=== PATIENT | female | born 1970 | race Asian ===

== ENCOUNTER 2023-02-28 23:08 | Emergency (ER) | payer BC, SELFPAY ==
[2023-02-28 23:09] VITALS: BP 112/82
--- NOTE | 2023-02-28 23:44 | ED.GENMED ---
History of Present Illness
General
Chief Complaint: Headache
Source: patient and records
Exam Limitations: none
Time Seen by Provider: 02/28/23 23:17
Nursing documentation reviewed up to this point in time: agreed with
Travel History
Have you had any contact with someone who has COVID-19?: No
Do you have any symptoms of coronavirus? Fever > 100 degrees, chills, cough, shortness of breath, sore throat, loss of taste or smell, muscle aches, or headache?: No
History of Present Illness
History of Present Illness:
52-year-old female history of migraines, whole family had COVID patient's been coughing developed headache an hour or so ago, no vomiting has had subjective fever and some cough chills intermittently eating and drinking okay headache is right-sided
behind her eye reportedly similar problem prior migraine but a bit more severe
Past History
Past History
ED Past Medical History: Other (Migraine headaches)
ED Past Surgical History: Other (Thyroid surgery)
Social History
Tobacco: Non-smoker
Alcohol: None
Personal:
Living: with family
Employment: Employed
Family History
Family History: Negative CAD or Sudden
Phy Exam
Physical Exam
Physical Exam:
Physical Exam
General: 52 female looks uncomfortable but nontoxic
Neck: No photophobia extraocular movements are intact no pain with flexion of the neck
Heart: s1/s2 regular rate and rhythm, no murmur. equal radial pulses.
Lungs: no acute respiratory distress. clear bilaterally
Abdomen: Nontender
Neuro: alert and oriented. no focal neurological deficits
Skin: no rash
Psychiatric: cooperative
Extremities: no edema.
Course
Orders/Labs/Results
Orders:
Orders
02/28/23 23:30
0.9% Sodium Chloride 1000 ml [Nss] 1,000 ml IV BOLUS
Dexamethasone Sod Phosphate [Decadron] 10 mg IV NOW STA
Ketorolac [Toradol] 30 mg IV NOW STA
Metoclopramide [Reglan] 10 mg IV NOW STA
02/28/23 23:40
0.9% Sodium Chloride 1000 ml [Nss] 1,000 ml IV BOLUS
02/28/23 23:49
Complete Blood Count/With Diff Urgent
Comprehensive Metabolic Panel Urgent
Abnormal Lab Results
02/28/23
23:49
RBC 4.13 L 10^6/uL
(4.20-5.40)
Hct 36.7 L %
(37.0-47.0)
MCH 32.0 H pg
(27.0-31.0)
Creatinine 0.5 L mg/dL
(0.6-1.0)
Glucose 100 H mg/dl
(70-99)
AST 39 H U/L
(14-36)
ALT 52 H U/L
(0-35)
02/28/23 23:49
02/28/23 23:49
Vital Signs
Initial and Last Documented VS:
Initial Vital Signs
Pulse Resp BP Pulse Ox
80 22 112/82 98
02/28/23 23:09 02/28/23 23:09 02/28/23 23:09 02/28/23 23:09
Last Documented Vital Signs
Pulse Resp BP Pulse Ox
80 22 112/82 98
02/28/23 23:09 02/28/23 23:09 02/28/23 23:09 02/28/23 23:09
MDM/Problems Addressed
Differential Diagnosis Includes:
Migraine dehydration, electrolyte abnormality doubt G[employer] BLASTING infection or intraocular lesion by history and physical
MDM/Problems Addressed:
Headache COVID
Chronic conditions affecting care:
Migraine
*Hogshead Head Matcher Interpretation
Rate: Hogshead Head Matcher- N/A
*Critical Care Note
Total Time (30-74mins, 75-104mins- exclusive of procedures): Not Applicable
Update Note
Update Note:
Update patient peers uncomfortable this admission migraines family states this is similar but a bit more severe than her prior migraines, does have COVID infection by report as test all family will hydrate try some antiemetics and steroids as she
does pupils are round and reactive, no photophobia no meningeal signs
1 AM, patient feeling better resting comfortably occasionally coughing no longer having headache family asking history as later, her main issue now is cough asking for some antitussives steroid should help with will also give a puffer
ED Attending Note
-
Portions of this chart may have been created with voice recognition software.� Occasional wrong word or��sound alike� substitutions may have occurred due to the inherent limitations of voice recognition software.
Discharge Plan
Departure
Patient Disposition: Home (Routine Discharge)
Date of Disposition: 03/01/23
Time of Disposition: :01
Patient with high blood pressure during this ER visit?: No
Condition: Good
Covid-19: Suspected COVID-19
Discharge Problem:
COVID-19, Headache
Instructions: Cough, Adult (DC), Headache, Adult (DC), COVID-19 (DC)
Prescriptions:
New
methylprednisolone [Medrol (Justino)] 4 mg tablets,dose pack
See Rx Instructions .ROUTE .COMPLEX Qty: 21 0RF
Rx Instructions:
orally per package directions
albuterol sulfate [ProAir HFA] 90 mcg/actuation HFA aerosol inhaler
2 puff inhalation Q4HPRN PRN (Reason: shortness of breath) Qty: 8.5 0RF
No Action
ondansetron 4 MG tablet,disintegrating
4 mg PO TIDPRN PRN (Reason: vomiting) Qty: 7 0RF
[id number] [Fioricet] 1 EACH capsule
1 ea PO TIDPRN PRN (Reason: headache) Qty: 10 0RF
Referrals:
Shagufta Michaels DO [Family Provider] -
[2023-02-28] MEDS: DECADRON 10 MG IV (23:50)
[2023-02-28] MEDS: REGLAN 10 MG IV (23:50)
[2023-02-28] MEDS: TORADOL 30 MG IV (23:51)
[2023-03-01 00:25] LABS: Hematocrit 36.7 % (37.0-47.0); Hemoglobin 13.2 g/dL (12.0-16.0); Mean Corpuscular Volume 88.9 fL (81.0-99.0); Mean Platelet Volume 9.5 fL (7.4-10.4); Nucleated Red Blood Cells % 0 %; Platelet Count 287 10^3/uL (130-400); Red Blood Cell Count 4.13 10^6/uL (4.20-5.40); Red Cell Dist. Width 11.8 % (11.5-14.5); White Blood Cell Count 7.3 10^3/uL (4.8-10.8)
[2023-03-01 00:46] LABS: ALT (SGPT) 52 U/L (0-35); AST (SGOT) 39 U/L (14-36); Alkaline Phosphatase 104 U/L (38-126); Blood Urea Nitrogen 10 mg/dl (7-17); Calcium 9.5 mg/dl (8.4-10.2); Carbon Dioxide 27 mmol/L (22-30); Chloride 102 mmol/L (98-107); Glucose 100 mg/dl (70-99); Potassium 3.5 mmol/L (3.5-5.1); Sodium 139 mmol/L (135-145); Total Bilirubin 1.1 mg/dl (0.2-1.3); eGFR > 60.00
[2023-03-01] MEDS: NSS 1000 IV (01:10)
[2023-03-01 01:39] LABS: Absolute Neutrophils -Man Diff 4.8 10^3/uL (1.4-6.5); Atypical Lymphocytes 5 %; Band Neutrophils 0 % (0-3); Eosinophils 1 % (0-6); Lymphocytes 25 % (20-51); Monocytes 3 % (2-9); Platelets Checked Yes; Segmented Neutrophils 66 % (42-75)
[2023-03-01 01:40] LABS: Normal RBC Morphology Yes; Total Cells Counted 100
== END 2023-03-01 01:26 | disposition home or self-care (01) ==
LOC: EMR 23:08
PROVIDERS: EMERGENCY PHYSICIAN Emergency Medicine; FAMILY PHYSICIAN Family Medicine
DX: U07.1 COVID-19 (principal); R51.9 Headache, unspecified; M19.90 Unspecified osteoarthritis, unspecified site; E07.9 Disorder of thyroid, unspecified
CPT/HCPCS: 99284; 96374; 96375 ×2; 96361; 80053; 85025